=== PATIENT | female | born 1995 | race Asian ===

== ENCOUNTER 2017-09-28 00:58 | Emergency (ER) | payer OTHER ==
[2017-09-28 01:22] LABS: GLUCOSE, URINE (UA) NEGATIVE (NEGATIVE); KETONES,URINE (UA) 15 mg/dL (NEGATIVE); LEUKOCYTE ESTERASE, URINE SMALL (NEGATIVE); NITRITE,URINE NEGATIVE (NEGATIVE); OCCULT BLOOD,URINE LARGE (NEGATIVE); PROTEIN,URINE 100 mg/dL (NEGATIVE); UROBILINOGEN,URINE 0.2 (NORMAL) E.U./dL (NORMAL)
[2017-09-28 01:37] LABS: BILIRUBIN,URINE NEGATIVE (NEGATIVE); CLARITY,URINE TURBID (CLEAR); HCG UR QUAL NEGATIVE; ICTOTEST,URINE NEGATIVE
[2017-09-28 01:38] LABS: BACTERIA,URINE None Seen /HPF (None Seen); RBC,URINE TNTC /HPF (0-5); SQUAMOUS EPITHELIAL CELL,UR RARE Squamous (<= Few)
[2017-09-28] MEDS ORDERED: PHENAZOPYRIDINE 100 MG TABLET PO STA (01:41)
[2017-09-28] MEDS ORDERED: SULFAMETH/TRIMETH DS 800/160 MG TABLET PO STA (01:41)
--- NOTE | 2017-09-28 01:50 | ED Physician Documentation ---
PD HPI FEMALE - Stated complaint Stated Complaint: FEMALE - Chief complaint Chief Complaint: Abd Pain - History obtained from History obtained from: Patient, Family - History of Present Illness Timing - onset: Yesterday Timing - details: Gradual onset, Still present Associated symptoms: Pelvic pain, Hematuria. No: Fever, Vaginal bleeding, Vaginal discharge Contributing factors: No: Similar symptoms before: Work up / diagnostics, Treatment Recently seen: Not recently seen - Additional information Additional information: Patient is a 22 year old female with no significant past medical history who is presenting to the emergency department for a two day history of dysuria, and increased frequency. patient states that she noticed blood in her urine tonight so she came in for evaluation. Patient denies any fever, chills nausea or vomiting. Patient took motrin and ibuprofen with little relief. Review of Systems Constitutional: denies: Fever, Chills Eyes: reports: Reviewed and negative Ears: reports: Reviewed and negative Nose: reports: Reviewed and negative Throat: reports: Reviewed and negative Cardiac: denies: Chest pain / pressure, Palpitations Respiratory: reports: Reviewed and negative GI: denies: Nausea, Vomiting : reports: Dysuria, Frequency, Hematuria Skin: reports: Reviewed and negative Musculoskeletal: denies: Back pain Neurologic: denies: Generalized weakness, Focal weakness Immunocompromised: denies: Immunocompromised PD PAST MEDICAL HISTORY - Past Medical History Past Medical History: No - Past Surgical History Past Surgical History: No - Present Medications Home Medications: Ambulatory Orders Medication Instructions Recorded Confirmed Phenazopyridine [Pyridium] 100 mg PO TID #6 tablet 09/28/17 Pnv95/Ferrous Fumarate/FA 1 tab PO DAILY 09/28/17 09/28/17 [ Formula Tablet] Sulfamethox/Trimeth 800/160 1 each PO BID #14 tablet 09/28/17 [Bactrim Ds 800/160] - Allergies Allergies/Adverse Reactions: Allergies Allergy/AdvReac Type Severity Reaction Status Date / Time No Known Drug Allergies Allergy Verified 09/28/17 01:06 - Social History Does the pt smoke?: No Smoking Status: Never smoker Does the pt drink ETOH?: No Does the pt have substance abuse?: No - POLST Patient has POLST: No PD ED PE NORMAL - General General: Alert and oriented X 3, No acute distress, Well developed/nourished - HEENT HEENT: Atraumatic, PERRL - Neck Neck: Supple, no meningeal sign - Cardiac Cardiac: RRR, No murmur - Respiratory Respiratory: No respiratory distress - Abdomen Abdomen: Soft, Non tender, Non distended - Derm Derm: Normal color, Warm and dry, No rash - Extremities Extremities: No deformity - Neuro Neuro: Alert and oriented X 3, No motor deficit, Normal speech - Psych Psych: Normal mood Results - Vitals Vitals: Vital Signs - 24 hr 09/28/17 01:02 Temperature 36.3 C L Heart Rate 79 Respiratory 16 Rate Blood Pressure 130/83 H O2 Saturation 97 - Labs Labs: Laboratory Tests 09/28/17 01:11 Urine Color BROWN Urine Clarity TURBID Urine pH 6.0 Ur Specific [place] >=1.030 H Urine Protein 100 H Urine Glucose (UA) NEGATIVE Urine Ketones 15 H Urine Occult Blood LARGE H Urine Nitrite NEGATIVE Urine Bilirubin NEGATIVE Urine Urobilinogen 0.2 (NORMAL) Ur Leukocyte Esterase SMALL H Urine RBC TNTC H Urine WBC 6-10 H Ur Squamous Epith Cells RARE Squamous Urine Bacteria None Seen Ur Microscopic Review INDICATED Urine Culture Comments INDICATED Urine HCG, Qual NEGATIVE PD MEDICAL DECISION MAKING - ED course Complexity details: reviewed old records, reviewed results, re-evaluated patient , considered differential, d/w patient ED course: Patient was seen and examined at bedside. Patient was well appearing and in no distress. Urine was collected and consistent with uti. patient was treated with bactrim and pyridium. Patient required no further work up and was stable for discharge with outpatient follow up. Departure - Departure Disposition: 01 Home, Self Care Clinical Impression: Urinary tract infection Condition: Good Instructions: ED UTI Cystitis Female Follow-Up: Miranda Romo MD [Primary Care Provider] - Within 3 Days Prescriptions: Phenazopyridine [Pyridium] 100 mg PO TID #6 tablet Sulfamethox/Trimeth 800/160 [Bactrim Ds 800/160] 1 each PO BID #14 tablet Comments: Your symptoms today are being caused by a urinary tract infection. You had your first dose of antibiotics tonight and will need to be on them for the next 7 days. You should take pyridium (which will turn your urine orange) for the next two days. You should also stay well hydrated and take motrin or tylenol as needed for pain. You should follow up with your pmd if your symptoms persist. You may return to the emergency department at any time for new, worsening or uncontrollable symptoms.
[2017-09-28 02:14] VITALS: BP 117/70
== END 2017-09-28 02:05 | disposition home or self-care (01) ==
LOC: ED 00:58
DX: N39.0 Urinary tract infection, site not specified (principal)
CPT/HCPCS: 81001; 81025; 87086; 87181; 99283; A9270; 81003

== ENCOUNTER 2017-10-21 18:52 | Emergency (ER) | payer OTHER, MEDICAID ==
[2017-10-21 19:51] LABS: BILIRUBIN,URINE NEGATIVE (NEGATIVE); GLUCOSE, URINE (UA) NEGATIVE (NEGATIVE); KETONES,URINE (UA) TRACE mg/dL (NEGATIVE); LEUKOCYTE ESTERASE, URINE NEGATIVE (NEGATIVE); NITRITE,URINE NEGATIVE (NEGATIVE); OCCULT BLOOD,URINE NEGATIVE (NEGATIVE); PROTEIN,URINE NEGATIVE (NEGATIVE); UROBILINOGEN,URINE 0.2 (NORMAL) E.U./dL (NORMAL)
[2017-10-21 19:57] LABS: CLARITY,URINE CLEAR (CLEAR)
[2017-10-21 19:59] LABS: HCG UR QUAL NEGATIVE
[2017-10-21 20:11] LABS: BASOPHILS % (AUTO) 0.2 %; EOSINOPHILS % (AUTO) 0.2 %; HGB - HEMOGLOBIN 13.9 g/dL (12.0-16.0); LYMPHOCYTES % (AUTO) 14.1 %; MEAN CORPUSCULAR HEMOGLOBIN 26.4 pg (27.0-31.0); MEAN CORPUSCULAR HGB CONC 33.3 g/dL (32.0-36.0); MEAN CORPUSCULAR VOLUME 79.2 fL (81.0-99.0); MEAN PLATELET VOLUME 6.2 fL (7.9-10.8); MONOCYTES # (AUTO) 0.5 10^3/uL (0.0-1.0); MONOCYTES % (AUTO) 6.8 %; NEUTROPHILS # (AUTO) 5.8 10^3/uL (1.5-6.6); NEUTROPHILS % (AUTO) 78.7 %; PLT - PLATELET COUNT 281 10^3/uL (130-450); RED BLOOD COUNT 5.29 10^6/uL (4.20-5.40); RED CELL DISTRIBUTION WIDTH 14.4 % (12.0-15.0); WHITE BLOOD COUNT 7.4 x10^3/uL (4.8-10.8)
[2017-10-21 20:23] LABS: ALBUMIN 4.6 g/dL (3.2-5.5); ALBUMIN/GLOBULIN RATIO 1.1 (1.0-2.2); BILIRUBIN,TOTAL 0.7 mg/dL (0.2-1.0); CALCIUM 9.7 mg/dL (8.5-10.3); CREATININE 0.7 mg/dL (0.4-1.0); TOTAL PROTEIN 8.9 g/dL (6.7-8.2)
--- NOTE | 2017-10-21 22:53 | ED Physician Documentation ---
PD HPI ABD PAIN - Stated complaint Stated Complaint: FEMALE - Chief complaint Chief Complaint: Abd Pain - History obtained from History obtained from: Patient - History of Present Illness Timing - onset: Enter time (06:00), Today Timing - details: Abrupt onset Pain level now: 3 Quality: Cramping Location: Epigastric Improved by: Other (no ameliorating factors) Worsened by: Other (no exacerbating factors) Associated symptoms: Diarrhea. No: Fever, Nausea, Vomiting Similar symptoms before: Has not had sx before Recently seen: Not recently seen Review of Systems Constitutional: denies: Fever, Chills, Sweats Cardiac: reports: Reviewed and negative Respiratory: reports: Reviewed and negative GI: reports: Abdominal Pain, Diarrhea. denies: Nausea, Vomiting : denies: Dysuria, Frequency PD PAST MEDICAL HISTORY - Past Medical History Past Medical History: No - Past Surgical History Past Surgical History: No - Present Medications Home Medications: Ambulatory Orders Medication Instructions Recorded Confirmed Nitrofurantoin Monohyd/M-Cryst 100 mg PO BID 5 Days capsule 09/28/17 [Macrobid 100 mg Capsule] Phenazopyridine [Pyridium] 100 mg PO TID #6 tablet 09/28/17 Pnv95/Ferrous Fumarate/FA 1 tab PO DAILY 09/28/17 09/28/17 [ Formula Tablet] Sulfamethox/Trimeth 800/160 1 each PO BID #14 tablet 09/28/17 [Bactrim Ds 800/160] - Allergies Allergies/Adverse Reactions: Allergies Allergy/AdvReac Type Severity Reaction Status Date / Time No Known Drug Allergies Allergy Verified 10/21/17 19:43 - Social History Does the pt smoke?: No Smoking Status: Never smoker Does the pt drink ETOH?: No Does the pt have substance abuse?: No - POLST Patient has POLST: No PD ED PE NORMAL - Vitals Vital signs reviewed: Yes - General General: Alert and oriented X 3, No acute distress, Well developed/nourished - HEENT HEENT: Moist mucous membranes - Cardiac Cardiac: RRR, No murmur - Respiratory Respiratory: No respiratory distress, Clear bilaterally - Abdomen Abdomen: Soft, Non distended, Other (mild tenderness across lower abdomen, most prominent RLQ. Mild rebound tenderness) - Back Back: No CVA TTP - Derm Derm: Normal color, Warm and dry Results - Vitals Vitals: Vital Signs - 24 hr 10/21/17 10/21/17 10/22/17 19:40 23:20 01:43 Temperature 36.9 C 37.9 C H Heart Rate 90 93 99 Respiratory 16 18 19 Rate Blood Pressure 125/82 H 126/78 119/77 O2 Saturation 96 98 98 Oxygen O2 Source Room air - Labs Labs: Laboratory Tests 10/21/17 10/21/17 10/21/17 19:48 19:48 20:04 WBC 7.4 RBC 5.29 Hgb 13.9 Hct 41.9 MCV 79.2 L MCH 26.4 L MCHC 33.3 RDW 14.4 Plt Count 281 MPV 6.2 L Neut # 5.8 Lymph # 1.0 L Williams # 0.5 Eos # 0.0 Baso # 0.0 Absolute Nucleated RBC 0.01 Nucleated RBC % 0.1 Sodium Potassium Chloride Carbon Dioxide Anion Gap BUN Creatinine Estimated GFR (MDRD) Glucose Calcium Total Bilirubin AST ALT Alkaline Phosphatase Total Protein Albumin Globulin Albumin/Globulin Ratio Lipase Urine Color YELLOW Urine Clarity CLEAR Urine pH 6.0 Ur Specific [place] >=1.030 H >=1.030 H Urine Protein NEGATIVE Urine Glucose (UA) NEGATIVE Urine Ketones TRACE Urine Occult Blood NEGATIVE Urine Nitrite NEGATIVE Urine Bilirubin NEGATIVE Urine Urobilinogen 0.2 (NORMAL) Ur Leukocyte Esterase NEGATIVE Ur Microscopic Review NOT INDICATED Urine Culture Comments NOT INDICATED Urine HCG, Qual NEGATIVE 10/21/17 20:04 WBC RBC Hgb Hct MCV MCH MCHC RDW Plt Count MPV Neut # Lymph # Williams # Eos # Baso # Absolute Nucleated RBC Nucleated RBC % Sodium 136 Potassium 3.4 L Chloride 103 Carbon Dioxide 21 Anion Gap 12.0 BUN 14 Creatinine 0.7 Estimated GFR (MDRD) 104 Glucose 104 H Calcium 9.7 Total Bilirubin 0.7 AST 62 H ALT 40 Alkaline Phosphatase 59 Total Protein 8.9 H Albumin 4.6 Globulin 4.3 H Albumin/Globulin Ratio 1.1 Lipase 33 Urine Color Urine Clarity Urine pH Ur Specific [place] Urine Protein Urine Glucose (UA) Urine Ketones Urine Occult Blood Urine Nitrite Urine Bilirubin Urine Urobilinogen Ur Leukocyte Esterase Ur Microscopic Review Urine Culture Comments Urine HCG, Qual - Rads (name of study) CT A/P Radiology: Prelim report reviewed, See rad report PD MEDICAL DECISION MAKING - ED course Complexity details: reviewed results, re-evaluated patient, considered differential, d/w patient ED course: Patient is , thus lomotil not given nor prescribed. There is some evidence that imodium is considered unsafe in and thus this was not given either (initially I ordered a dose and told patient she can take imodium; "pocket pharmacopeia" indicates "generally considered safe in ", but [place] says " is not recommended by the linen attendant"). Departure - Departure Disposition: Home, Self Care Clinical Impression: Abdominal pain Qualifiers: Abdominal location: generalized Qualified Code(s): R10.84 - Generalized abdominal pain Cyst of ovary Qualifiers: Laterality: right Qualified Code(s): N83.201 - Unspecified ovarian cyst, right side Diarrhea Qualifiers: Diarrhea type: unspecified type Qualified Code(s): R19.7 - Diarrhea, unspecified Condition: Good Instructions: ED Diarrhea Viral, ED Cyst Ovarian Follow-Up: Miranda Romo MD [Primary Care Provider] - Discharge Date/Time: 10/22/17 02:28
[2017-10-21] MEDS ORDERED: IOPAMIDOL-300 100 ML VIAL ONE (23:41)
[2017-10-22] MEDS ORDERED: IOPAMIDOL-300 100 ML VIAL IVP ONE (00:47)
--- NOTE | 2017-10-22 01:27 | CT Report ---
EXAM: CT ABDOMEN AND PELVIS EXAM DATE: 10/22/2017 12:50 AM. CLINICAL HISTORY: Right lower quadrant pain COMPARISONS: None. TECHNIQUE: Routine helical CT imaging was performed through the abdomen and pelvis. IV contrast: 100M L ISOVUE 300. Enteric contrast: No. Reconstructions: Coronal and sagittal. In accordance with CT protocol optimization, one or more of the following dose reduction techniques w ere utilized for this exam: automated exposure control, adjustment of mA and/or KV based on patient s ize, or use of iterative reconstructive technique. FINDINGS: ABDOMEN: Liver: No significant abnormality. Stomach/Distal Esophagus: No significant abnormality. Gallbladder: No significant abnormality. Bile Ducts: No significant abnormality. Pancreas: No significant abnormality. Spleen: No significant abnormality. Kidneys: No suspicious solid appearing lesion. No hydronephrosis. Adrenals: No significant abnormality. Bowel: No obstruction. Average fecal residual. Appendix: Normal. Lymph Nodes: No pathologically enlarged nodes. Vasculature: Normal caliber aorta. Fluid: No significant free fluid. Abdominal Wall: No significant abnormality. Other: No significant abnormality. PELVIS: Uterus and Ovaries: Physiologic appearance, right ovary collapsing cyst. Bladder: No significant abnormality. Lymph Nodes: No pathologically enlarged nodes. Fluid: There is a small amount of free fluid within the physiologic. Other: None. BONES: No suspicious bony lesions. LOWER CHEST: No significant consolidation or effusion. IMPRESSION: 1. No acute abdominal or pelvic abnormality. 2. Appendix is normal. 3. There is no suspicious adnexal abnormality. Physiologic appearance of the uterus and ovaries, incl uding a small collapsing right ovary cyst. [facility] Referring Provider Line: [phone] SITE ID: [id number]
--- NOTE | 2017-10-22 01:27 | CT Preliminary Report ---
Exam: CT ABDOMEN/PELVIS W/ IMPRESSION: 1. No acute abdominal or pelvic abnormality. 2. Appendix is normal. 3. There is no suspicious adnexal abnormality. Physiologic appearance of the uterus and ovaries, incl uding a small collapsing right ovary cyst. [facility] SITE ID: [id number]
[2017-10-22 01:44] VITALS: BP 119/77
[2017-10-22] MEDS ORDERED: LOPERAMIDE 2 MG CAPSULE PO STA (02:04)
== END 2017-10-22 02:28 | disposition home or self-care (01) ==
LOC: ED 18:52
DX: R10.84 Generalized abdominal pain (principal); R19.7 Diarrhea, unspecified
CPT/HCPCS: 36415; 74177; 80053; 81003; 81025; 83690; 85025; 99283; Q9967; 81001; 87086

== ENCOUNTER 2020-11-27 22:34 | Emergency (ER) | payer OTHER, MEDICAID ==
--- NOTE | 2020-11-27 23:10 | ED Physician Documentation ---
PD HPI FEMALE - Stated complaint Stated Complaint: FEMALE - History obtained from History obtained from: Patient, Other (At triage, the triage nurse sent the patient to OB L&D but was referred back to the ER for evaluation. Triage nurse states she contacted OB on-call and they confirmed the patient to be seen in the ER.) - History of Present Illness Timing - onset: How many hours ago (several hours ago at about 5 pm, had onset of vaginal spotting of blood and noted some mucous discharge.) Timing - duration: Hours Timing - details: Abrupt onset, Still present Associated symptoms: Vaginal bleeding (spotting the past few hours), Vaginal discharge (mild mucous discharge; denies watery per se.). No: Fever Contributing factors: (20 weeks and few days; had routine U/S yesterday by her OB ([facility]) confirming dates and showing female sex and otherwise normal U/S.) [employer] History: G (1), P (0) Similar symptoms before: Has not had sx before Recently seen: Clinic (outpt U/S yesterday; routine OB care last week.) Review of Systems Constitutional: denies: Fever, Chills Nose: denies: Rhinorrhea / runny nose, Congestion Throat: denies: Sore throat Respiratory: denies: Cough GI: reports: Abdominal Pain (cramping lower abd this evening). denies: Nausea, Vomiting, Diarrhea : reports: Discharge, Vaginal bleeding (spotting), Now EGA (20w4d). denies: Dysuria, Frequency Neurologic: denies: Generalized weakness, Near syncope PD PAST MEDICAL HISTORY - Past Medical History Past Medical History: No - Past Surgical History Past Surgical History: No - Present Medications Home Medications: Ambulatory Orders Medication Instructions Recorded Confirmed Pnv No.95/Ferrous Fum/Folic AC 1 tab PO DAILY 09/28/17 09/28/17 [ Formula Tablet] - Allergies Allergies/Adverse Reactions: Allergies Allergy/AdvReac Type Severity Reaction Status Date / Time No Known Drug Allergies Allergy Verified 10/21/17 19:43 - Social History Does the pt smoke?: No Smoking Status: Never smoker Does the pt drink ETOH?: No Does the pt have substance abuse?: No - POLST Patient has POLST: No PD ED PE NORMAL - Vitals Vital signs reviewed: Yes - General General: Alert and oriented X 3, No acute distress, Well developed/nourished - Cardiac Cardiac: RRR, No murmur - Respiratory Respiratory: Clear bilaterally - Abdomen Abdomen: Normal bowel sounds, Soft, Non tender, Non distended, No organomegaly, Other (gravid with fundus just above umbilicus. Bedside U/S showing normal FHR, appropriate appearing amniotic fluid amount, good movement. ) - Female Female : Vp Production present, Other (There is some mild mucousy to whitish milky discharge in the vaginal vault. There is mild cervical irritation. The os is closed. The cervix appears normal length without any shortening. No endocervical discharge is seen. The the vaginal vault is tested with nitrazine and is negative for amnioti) - Rectal Rectal: Deferred Results - Vitals Vitals: Vital Signs - 24 hr 11/27/20 11/28/20 23:21 00:42 Temperature 36.5 C 36.4 C L Heart Rate 108 H 98 Respiratory 14 20 Rate Blood Pressure 140/69 H 132/70 H O2 Saturation 98 100 Oxygen O2 Source Room air - Labs Labs: Laboratory Tests 11/27/20 11/28/20 00:15 00:00 Urine Color YELLOW Urine Clarity HAZY Urine pH 6.0 Ur Specific [place] 1.020 Urine Protein NEGATIVE Urine Glucose (UA) NEGATIVE Urine Ketones NEGATIVE Urine Occult Blood MODERATE H Urine Nitrite NEGATIVE Urine Bilirubin NEGATIVE Urine Urobilinogen 0.2 (NORMAL) Ur Leukocyte Esterase MODERATE H Urine RBC 0-5 Urine WBC >25 H Ur Squamous Epith Cells FEW Squamous Urine Bacteria Few Ur Microscopic Review INDICATED Urine Culture Comments INDICATED C. glabrata (PCR) NEGATIVE C. krusei (PCR) NEGATIVE Heidi species DNA NEGATIVE T. vaginalis (PCR) NEGATIVE Bact Vaginosis (PCR) POSITIVE A PD MEDICAL DECISION MAKING - ED course Complexity details: reviewed results (exam c/w BV clinically. Fetus appears normal by U/S bedside. ), considered differential, d/w patient Departure - Departure Disposition: 01 Home, Self Care Clinical Impression: Vaginal spotting, Bacterial vaginitis Qualifiers: Weeks of gestation: 20 weeks Qualified Code(s): Z3A.20 - 20 weeks gestation of Condition: Stable Record reviewed to determine appropriate education?: Yes Instructions: ED Vaginosis Bacterial Follow-Up: [facility] [Provider Group] [facility] [Provider Group] Comments: There does appear to be some irritation at the end of the cervix and some vaginal mild discharge. This looks likely to be bacterial vaginitis. The results of the vaginal test will result in the next day or so. Will call if we need to change treatment. At this point would treat with metronidazole twice daily for a week (I verified the duration in up-to-date reference). You can use Tylenol every 4-6 hours if needed for cramps or pains. Stay well-hydrated. I would anticipate improvement in your symptoms over the next day or 2. Follow- up with your primary care or [employer] in the next couple of days, call for video discussion or exam. Return if worsening symptoms. Bedside ultrasound showed normal heartbeat and movement and amniotic fluid. There is no signs of amniotic fluid in the vaginal vault. Discharge Date/Time: 11/28/20 00:42
[2020-11-27] MEDS ORDERED: ACETAMINOPHEN 325 MG TABLET PO STA (23:52)
[2020-11-28] MEDS ORDERED: metroNIDAZOLE 250 MG TABLET PO STA (00:18)
[2020-11-28 00:24] LABS: BILIRUBIN,URINE NEGATIVE (NEGATIVE); GLUCOSE, URINE (UA) NEGATIVE (NEGATIVE); KETONES,URINE (UA) NEGATIVE (NEGATIVE); LEUKOCYTE ESTERASE, URINE MODERATE (NEGATIVE); NITRITE,URINE NEGATIVE (NEGATIVE); OCCULT BLOOD,URINE MODERATE (NEGATIVE); PROTEIN,URINE NEGATIVE (NEGATIVE); UROBILINOGEN,URINE 0.2 (NORMAL) E.U./dL (NORMAL)
[2020-11-28 00:26] LABS: CLARITY,URINE HAZY (CLEAR)
[2020-11-28 00:33] LABS: BACTERIA,URINE Few /HPF (None Seen); RBC,URINE 0-5 /HPF (0-5); SQUAMOUS EPITHELIAL CELL,UR FEW Squamous (<= Few); WBC,URINE >25 /HPF (0-5)
[2020-11-28 00:43] VITALS: BP 132/70
[2020-11-28 05:11] LABS: BACTERIAL VAGINOSIS DNA POSITIVE (NEGATIVE); CANDIDA GLABRATA DNA NEGATIVE (NEGATIVE); CANDIDA GROUP DNA NEGATIVE (NEGATIVE); CANDIDA KRUSEI DNA NEGATIVE (NEGATIVE); TRICHOMONAS VAGINALIS DNA NEGATIVE (NEGATIVE)
== END 2020-11-28 00:42 | disposition home or self-care (01) ==
LOC: ED 22:34
DX: O23.592 Infection of other part of genital tract in pregnancy, second trimester (principal); B96.89 Other specified bacterial agents as the cause of diseases classified elsewhere; Z3A.20 20 weeks gestation of pregnancy
CPT/HCPCS: 81001; 87086; 87481; 87661; 87801; 99283; A9270; 81003

== ENCOUNTER 2021-06-05 08:00 | Outpatient (CLI) | payer OTHER, MEDICAID | END 2021-06-05 23:59 | disposition home or self-care (01) | LOC: LAB.N 08:00 | PROVIDERS: ATTEND Physician Assistant Medical | DX: R30.0 Dysuria (principal) | CPT/HCPCS: 87086 ==

== ENCOUNTER 2021-06-08 12:47 | Outpatient (CLI) | payer OTHER, MEDICAID ==
[2021-06-08 16:50] LABS: BILIRUBIN,URINE NEGATIVE (NEGATIVE); GLUCOSE, URINE (UA) NEGATIVE (NEGATIVE); KETONES,URINE (UA) NEGATIVE (NEGATIVE); LEUKOCYTE ESTERASE, URINE LARGE (NEGATIVE); NITRITE,URINE NEGATIVE (NEGATIVE); OCCULT BLOOD,URINE NEGATIVE (NEGATIVE); PROTEIN,URINE NEGATIVE (NEGATIVE); UROBILINOGEN,URINE 0.2 (NORMAL) E.U./dL (NORMAL)
[2021-06-08 16:58] LABS: CLARITY,URINE HAZY (CLEAR); RBC,URINE 0-5 /HPF (0-5)
[2021-06-08 16:59] LABS: BACTERIA,URINE Many /HPF (None Seen); SQUAMOUS EPITHELIAL CELL,UR MANY Squamous (<= Few)
== END 2021-06-08 12:48 | disposition home or self-care (01) ==
LOC: LAB.N 12:47
PROVIDERS: ATTEND Nurse Practitioner
DX: N30.00 Acute cystitis without hematuria (principal)
CPT/HCPCS: 81001; 87086

== ENCOUNTER 2022-06-11 08:00 | Outpatient (CLI) | payer OTHER, MEDICAID | END 2022-06-11 23:59 | disposition home or self-care (01) | LOC: LAB.N 08:00 | PROVIDERS: ATTEND Physician Assistant | DX: J36 Peritonsillar abscess (principal) | CPT/HCPCS: 87070 ==